=== PATIENT | male | born 1940 | race Caucasian/White ===

== ENCOUNTER → 2016-12-08 | Day surgery (SDC) | payer MEDICARE, BC ==
[~2016-12-08] MED LIST: ASPI81TA21 PO; BUPIVACAINE/EPINEPHRINE 0.25% 50 ML VIAL ONE; COUM5TAB PO; FENO160T2 OR; GLIP5 PO; JANU50TA5 PO; LACTATED RINGER'S 1000 ML INJ 1,000 ML ONE; LISI2.5T55 PO; METO100T9; MIDAZOLAM HCL 2 MG/2 ML VIAL ONE; OMEG1CAP53 PO; ONDANSETRON HCL 4 MG/2 ML VIAL IV PUSH ONE; PROPOFOL 200 MG/20 ML AMP IV ONE; SIMV10TA PO; VICT18IN; ZOLP1TAB32 PO; [UNRECOGNIZED DRUG - REMARK]; ceFAZolin 2 GM PREMIX 50 ML ONE; metroNIDAZOLE 500 MG INJ 100 ML IV ONE
--- NOTE | 2016-12-08 11:01 | TN ---
cc: EDUIN WARREN M.D. DATE OF SURGERY: 12/08/2016 PREOPERATIVE DIAGNOSIS Cholelithiasis, biliary colic. POSTOPERATIVE DIAGNOSES Cholelithiasis, biliary colic. PROCEDURE Laparoscopic cholecystectomy. SURGEON Dr. Eduin Warren. INTERPRETER FOR THE DEAF: Khushbu PGY-1. 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 Eduin Hooker and Dr Lis Wong who has developed recurrent episodes of right upper quadrant pain after eating worsening at night time. Ultrasound demonstrates a 1.7 cm gallstone within his gallbladder. Plans were made for laparoscopic cholecystectomy. He does have a history of atrial fibrillation cardiac stents insulin-dependent diabetes and he normally takes Eliquis for atrial fibrillation. INTRAOPERATIVE FINDINGS Short term asystole upon insufflation of carbon dioxide gas. This responded to medications and his heart rate and blood pressure returned to normal very quickly. The gallbladder was removed and sent to pathology. Estimated blood loss minimal. DESCRIPTION OF PROCEDURE IN DETAIL The patient identified as Wes Hook taken to [facility] and placed supine position. Sequential compression devices were placed on bilateral lower extremities. Following induction of adequate general anesthesia the patient's abdomen was prepped and draped in usual sterile fashion with Betadine. A time-out procedure was performed. Following completion time-out procedure to everyone's satisfaction within the room 0.25% Marcaine with epinephrine was placed at each incision site. An incision transverse about 4 cm in length was carried out with a scalpel was superior and right lateral to the umbilicus. Incision dissection continued posterior level of the anterior rectus fascia which was incised in transverse fashion. The underlying muscle was spread and the posterior fascia and peritoneum were brought anteriorly. They were incised with scalpel and entry the peritoneal cavity was facilitated with the surgeon's finger. The applied medical balloon Jerri trocar was placed in the peritoneal cavity balloon inflated to insufflation to level of 15 mmHg ensued. The patient developed asystole. The patient was desufflated and we waited with medications and time. His heart rate of blood pressure returned to normal very quickly. We then reinsufflated slowly there was no untoward effect. The patient was placed in a reverse Trendelenburg position turned to the left three upper abdominal 5 mm trocars were placed in the peritoneal cavity direct laparoscopic view after incision skin with a scalpel. A sol flex liver retractor was used to retract intra-abdominal fat and transverse colon away from the gallbladder. There were no inflammatory adhesions to the gallbladder. The gallbladder was quickly removed from the gallbladder fossa in a dome down technique using the harmonic scalpel. Cystic artery was divided harmonic scalpel. The cystic duct was isolated from surrounding tissues, ligated proximally distally with 0-PDS Endoloops and the cystic duct divided between the Endoloops. The gallbladder removed from the peritoneal cavity and an Endo retriever bag. The right upper quadrant examined. There is no evidence of bleeding. The cyst duct ligature remained intact. There is no bilious drainage. Brief survey demonstrated no other intra-abdominal abnormalities. Remaining local anesthetic was placed in sub hepatic position. Trocars removed under direct visualization there was no evidence of bleeding from trocar sites. The abdomen was desufflated through the camera ports. The posterior fascia peritoneum were closed with running 0 Vicryl. Anterior fascia was closed with running 0 Vicryl. Skin incisions were closed with interrupted 4-0 Monocryl subcuticular sutures. Dressings were applied, Mastisol inch brown Steri-Strips. The patient tolerated procedure without apparent complication. Sponge, needle and instrument counts were correct at the case. MD HOOD Elizalde/butch /10:41 AM /10:48 AM
== END | disposition home or self-care (01) ==
LOC: ESDC 07:31
PROVIDERS: ATTEND Surgery Trauma Surgery
DX: K80.20 Calculus of gallbladder without cholecystitis without obstruction (principal); E11.9 Type 2 diabetes mellitus without complications; Z79.84 Long term (current) use of oral hypoglycemic drugs
CPT/HCPCS: 00790; 47562; 82948; 88304; J0690; J2250; J2405; J3010; J7120